=== PATIENT | female | born 2000 | race African-American/Black ===

== ENCOUNTER 2022-07-05 21:17 | Emergency (ER) | payer MEDICAID ==
[~2022-07-05] VITALS: Ht 167.6 cm; Wt 85.4 kg
[2022-07-05] MEDS ORDERED: PREDNISONE 5MG TABLET PO ONE (22:15)
[2022-07-05 22:58] LABS: BASOPHILS % 0.4 % (0.0-2.0); EOSINOPHILS % 3.1 % (0.0-5.0); HEMATOCRIT. 38.5 % (36.0-48.0); HEMOGLOBIN. 12.5 g/dL (12.0-16.0); LYMPHOCYTES % 21.9 % (20.0-50.0); MEAN CORPUSCULAR HEMOGLOBIN 30.1 pg (28.0-32.0); MEAN CORPUSCULAR VOLUME 92.3 fL (81.0-99.0); MEAN PLATELET VOLUME 7.5 fl (7.4-10.4); MONOCYTES % 10.2 % (2.0-8.0); NEUTROPHILS % 64.4 % (40.0-76.0); PLATELET 263 x1000/uL (130-400); RED BLOOD CELL COUNT 4.17 mill/uL (4.2-5.4); RED CELL DISTRIBUTION WIDTH 12.9 % (11.6-14.6)
[2022-07-05 23:07] LABS: CHLORIDE 107 mEq/L (98-107)
[2022-07-05 23:30] LABS: HCG SCREEN NEGATIVE
[2022-07-06 05:05] VITALS: BP 120/73
[2022-07-06] MEDS ORDERED: IOHEXOL-350 100 ML BOTTLE ONE (05:43)
== END 2022-07-06 05:12 | disposition home or self-care (01) ==
LOC: ER 21:17
DX: R07.89 Other chest pain (principal)
CPT/HCPCS: 36415; 71045; 71275; 80053; 83880; 84484; 84703; 85025; 85730; 93005; 99285; J7512; Q9967; Z7610

== ENCOUNTER 2023-11-14 02:11 | Inpatient (IN) | payer BC, MEDICAID ==
[~2023-11-14] VITALS: Ht 168.9 cm; Wt 77.1 kg
[2023-11-14 03:17] LABS: BASOPHILS % 0.8 % (0.0-2.0); CHLORIDE 109 mEq/L (98-107); EOSINOPHILS % 3.7 % (0.0-5.0); HEMOGLOBIN. 12.7 g/dL (12.0-16.0); LYMPHOCYTES % 41.5 % (20.0-50.0); MEAN CORPUSCULAR HEMOGLOBIN 31.3 pg (28.0-32.0); MEAN CORPUSCULAR HGB CONC 32.7 g/dL (31.0-37.0); MEAN CORPUSCULAR VOLUME 95.9 fL (81.0-99.0); MEAN PLATELET VOLUME 7.9 fl (7.4-10.4); PLATELET 279 x1000/uL (130-400); POTASSIUM 3.6 mEq/L (3.5-5.1); RED BLOOD CELL COUNT 4.06 mill/uL (4.2-5.4); RED CELL DISTRIBUTION WIDTH 12.4 % (11.6-14.6); SODIUM 139 mEq/L (136-145)
[2023-11-14 03:18] LABS: CARBON DIOXIDE 26 mEq/L (21-32)
[2023-11-14 03:19] LABS: CALCIUM 8.8 mg/dL (8.7-10.4)
[2023-11-14 03:23] LABS: CREATININE 0.9 mg/dL (0.6-1.0); GLUCOSE 124 mg/dL (70-105)
[2023-11-14 03:24] LABS: UREA NITROGEN BLOOD 12 mg/dL (9-23)
[2023-11-14 03:25] LABS: ALANINE AMINOTRANSFERASE 13 IU/L (10-49); ALBUMIN 3.9 g/dL (3.2-4.8); ASPARTATE AMINOTRANSFERASE 20 IU/L (<34)
[2023-11-14 03:26] LABS: BILIRUBIN TOTAL 0.3 mg/dL (0.1-1.0); PROTEIN TOTAL 7.3 g/dL (6.0-8.3)
[2023-11-14 03:53] LABS: BILIRUBIN DIRECT < 0.1 mg/dL (<=3.0)
[2023-11-14 04:16] LABS: CLARITY URINE CLEAR (CLEAR); COLOR URINE YELLOW (YELLOW); GLUCOSE URINE NEGATIVE (NEGATIVE); KETONES URINE NEGATIVE (NEGATIVE); LEUKOCYTE ESTERASE URINE NEGATIVE (NEGATIVE); NITRITE URINE NEGATIVE (NEGATIVE); OCCULT BLOOD URINE TRACE (NEGATIVE); PH URINE 5.5 (4.5-8.0); PROTEIN URINE NEGATIVE (NEGATIVE); SPECIFIC GRAVITY URINE 1.021 (1.005-1.030); UROBILINOGEN URINE 0.2 E.U./dL (0.2-1.0)
[2023-11-14] MEDS: SODIUM CHLORIDE 0.9% 1,000 ML IV ONE (04:23)
[2023-11-14 05:07] LABS: BACTERIA URINE TRACE; SQUAMOUS EPITHELIAL CELL URINE FEW /lpf (RARE/1+)
[2023-11-14 05:10] LABS: HCG SCREEN NEGATIVE
[2023-11-14] MEDS: ACETAMINOPHEN 1000MG/100ML 100 ML IV ONE (05:30)
[2023-11-14] MEDS: PIPERACILLIN/TAZO 3.375G/50ML 50 ML IV ONE (07:55)
[2023-11-14] MEDS ORDERED: ONDANSETRON HCL 4MG/2ML INJ IV PRN (08:45)
[2023-11-14] MEDS ORDERED: SKIN ADHESIVE 0.7 GM EA TOP ONE (10:11)
[2023-11-14] MEDS ORDERED: BUPIVACAINE HCL/PF 0.5% (5MG/ML) 10ML ONE (10:11)
[2023-11-14] MEDS ORDERED: ONDANSETRON HCL 4MG/2ML INJ ONE (11:13)
[2023-11-14] MEDS ORDERED: DEXAMETHASONE 4MG/ML 1ML VIAL ONE (11:13)
[2023-11-14] MEDS ORDERED: NEOSTIGMINE METHYLSULFATE 1MG/ML 10 ML VIAL ONE (11:14)
[2023-11-14] MEDS ORDERED: PROPOFOL 200MG/20ML VIAL IV ONE (11:14)
[2023-11-14] MEDS ORDERED: GLYCOPYRROLATE 0.2 MG/ML 2ML VIAL ONE ×2 (11:14)
[2023-11-14] MEDS ORDERED: ROCURONIUM BROMIDE 10MG/ML VIAL 5ML IV ONE (11:14)
[2023-11-14] MEDS ORDERED: FENTANYL CITRATE/PF 50MCG/ML 2ML VIAL ONE (11:15)
[2023-11-14] MEDS ORDERED: MIDAZOLAM HCL 2 MG/2 ML VIAL ONE (11:15)
[2023-11-14] MEDS ORDERED: LABETALOL 5MG/ML 4ML INJ IV PRN (11:45)
[2023-11-14] MEDS ORDERED: MEPERIDINE HCL/PF 25MG/ML CPJ IV PRN (11:45)
[2023-11-14] MEDS ORDERED: SUGAMMADEX SODIUM 200MG/2ML VIAL IV ONE (11:51)
[2023-11-14] MEDS ORDERED: HYDROMORPHONE HCL/PF 1MG/ML INJ ONE (11:55)
[2023-11-14] MEDS: HYDROMORPHONE HCL/PF 1MG/ML INJ IV PRN (13:18)
[2023-11-14] MEDS: ONDANSETRON HCL 4MG/2ML INJ IV PRN (13:23)
[2023-11-14] MEDS ORDERED: ACETAMINOPHEN WITH CODEINE 300/30MG TABLET PO SCH (14:00)
[2023-11-14] MEDS ORDERED: PIPERACILLIN/TAZO 3.375G/50ML 50 ML IV SCH (14:00)
[2023-11-14] MEDS ORDERED: NALOXONE HCL 0.4MG/ML VIAL IV PRN (14:30)
[2023-11-14] MEDS: DEXT 5%/0.45% NACL KCL 20MEQ/L 1,000 ML IV ONE (14:35)
[2023-11-14 19:03] VITALS: BP 117/68; PULSE 70; RESP 16; TEMP 36.8072
[2023-11-14] MEDS: MORPHINE SULFATE 2 MG/ML INJ (NOT FOR IM USE) IV PRN (19:37)
[2023-11-14 20:00] VITALS: BP 120/75; PULSE 94; RESP 17; TEMP 36.3918; O2SAT 98
[2023-11-15] VITALS: BP 125/72; PULSE 83; RESP 16; TEMP 36.50292; O2SAT 100
[2023-11-15 04:00] VITALS: BP 107/66; PULSE 77; RESP 16; TEMP 36.22512; O2SAT 100
[2023-11-15] MEDS: HYDROCODONE/ACETAMINOPHEN 5/325MG TABLET PO PRN (04:24)
[2023-11-15 07:30] LABS: CHLORIDE 107 mEq/L (98-107); POTASSIUM 4.3 mEq/L (3.5-5.1); SODIUM 137 mEq/L (136-145)
[2023-11-15 07:31] LABS: CARBON DIOXIDE 25 mEq/L (21-32)
[2023-11-15 07:36] LABS: CREATININE 0.8 mg/dL (0.6-1.0); GLUCOSE 114 mg/dL (70-105); UREA NITROGEN BLOOD 9 mg/dL (9-23)
[2023-11-15 07:43] LABS: BASOPHILS % 0.6 % (0.0-2.0); EOSINOPHILS % 0.1 % (0.0-5.0); HEMATOCRIT. 37.7 % (36.0-48.0); HEMOGLOBIN. 12.7 g/dL (12.0-16.0); LYMPHOCYTES % 10.5 % (20.0-50.0); MEAN CORPUSCULAR HEMOGLOBIN 32.1 pg (28.0-32.0); MEAN CORPUSCULAR HGB CONC 33.8 g/dL (31.0-37.0); MONOCYTES % 6.4 % (2.0-8.0); NEUTROPHILS % 82.4 % (40.0-76.0); PLATELET 275 x1000/uL (130-400); RED BLOOD CELL COUNT 3.96 mill/uL (4.2-5.4); RED CELL DISTRIBUTION WIDTH 11.8 % (11.6-14.6); WHITE BLOOD COUNT 8.3 x1000/uL (4.5-11.0)
[2023-11-15 08:00] VITALS: BP 131/74; PULSE 69; RESP 18; TEMP 36.3918; TEMP 36.39180; O2SAT 100
[2023-11-15 15:57] VITALS: BP 104/58; PULSE 74; TEMP 97.5; O2SAT 100
== END 2023-11-15 16:30 | disposition home or self-care (01) | DRG 399 ==
LOC: ER 02:11 → EDBEDREQTM 07:58 → EDBEDREQ 07:58 → 6EST 18:38
PROVIDERS: ADMIT Internal Medicine; ATTEND Internal Medicine
PROC: 0DTJ4ZZ Resection of Appendix, Percutaneous Endoscopic Approach (ICD-10-PCS; principal; 2023-11-14)
DX: K35.80 Unspecified acute appendicitis (principal); R16.0 Hepatomegaly, not elsewhere classified; K76.0 Fatty (change of) liver, not elsewhere classified; Z91.148 Patient's other noncompliance with medication regimen for other reason
CPT/HCPCS: 36415; 71045; 74176; 76700; 80048; 80076; 81003; 84703; 85025; 88304; 99285; J1100; J1171; J2250; J2270; J2405; J2543; J2704; J2710; J3010; J3490; J7030; J0131